=== PATIENT | male | born 1965 | race Caucasian/White ===

== ENCOUNTER 2016-09-09 10:18 | Outpatient (CLI) | payer MEDICAID | END 2016-09-09 10:19 | disposition home or self-care (01) | DX: M25.561 Pain in right knee (principal) ==

== ENCOUNTER 2016-12-12 07:37 | Emergency (ER) | payer MEDICAID ==
--- NOTE | 2016-12-12 07:44 | ED Physician Documentation ---
PD HPI CHEST PAIN - Stated complaint Stated Complaint: CHEST PX - Chief complaint Chief Complaint: Cardiac - History obtained from History obtained from: Patient - History of Present Illness Timing - onset: How many days ago (3-4) Timing - onset during: Light activity Timing - duration: Minutes Timing - details: Waxing and waning Quality: Pressure, Tightness. No: Sharp, Tearing Location: Substernal Radiation: Back Improved by: Rest Worsened by: Exertion (minimal exertion of just walking around house or to mailbox causing chest pain, improved after few minutes of rest.). No: Inspiration, Eating, Movement, Palpation Associated symptoms: Shortness of air, General Weakness. No: Diaphoresis, Nausea, Feeling faint / dizzy, Palpitations, Cough (had had URI with cough about 2-3 weeks ago and though he had ongoing dyspnea from that. Then with chest pain on mild exertion the past 3-4 days.) Similar symptoms before: Has not had sx before Recently seen: Not recently seen (had been to [facility] about 2-3 months ago and Dx with HTN, started on Lisinopril. Patient says he was on it only 2-3 weeks, then had apparent viral GE with vomiting and diarrhea, and stopped meds. Did not resume. Had URI/cough about 2 weeks ago for few days and improved with just mild occasional cough now.) Review of Systems Constitutional: reports: Fatigue. denies: Fever, Chills, Myalgias Nose: denies: Rhinorrhea / runny nose, Congestion Throat: denies: Sore throat Respiratory: reports: Dyspnea, Cough (mild). denies: Wheezing GI: denies: Abdominal Pain, Nausea, Vomiting, Diarrhea, Bloody / black stool : denies: Dysuria, Frequency Skin: denies: Rash, Lesions Neurologic: denies: Focal weakness, Numbness, Near syncope Endocrine: denies: Weight loss Immunocompromised: denies: Immunocompromised PD PAST MEDICAL HISTORY - Past Medical History Cardiovascular: Hypertension Respiratory: None Neuro: None Endocrine/Autoimmune: None - Past Surgical History Past Surgical History: No - Present Medications Home Medications: Ambulatory Orders Medication Instructions Recorded Confirmed Aspirin 0 mg PO DAILY 12/12/16 12/12/16 Finasteride 1 mg PO DAILY 12/12/16 12/12/16 - Allergies Allergies/Adverse Reactions: Allergies Allergy/AdvReac Type Severity Reaction Status Date / Time No Known Drug Allergies Allergy Verified 12/12/16 07:42 - Living Situation Living Situation: reports: With spouse/s.o. Living Arrangement: reports: At home - Social History Smoking Status: Former smoker Does the pt drink ETOH?: No Does the pt have substance abuse?: Yes Substance Use and Type: Marijuana - Family History Family history: reports: Non contributory - Immunizations Immunizations are current?: Yes - POLST POLST Status: Full Code PD ED PE NORMAL - Vitals Vital signs reviewed: Yes - General General: Alert and oriented X 3, No acute distress, Well developed/nourished - HEENT HEENT: Pharynx benign - Neck Neck: Supple, no meningeal sign, No adenopathy - Cardiac Cardiac: RRR, No murmur, No rub - Respiratory Respiratory: Clear bilaterally - Abdomen Abdomen: Soft, Non tender - Male Male : Deferred - Rectal Rectal: Deferred - Back Back: No CVA TTP - Derm Derm: Normal color, Warm and dry - Extremities Extremities: No tenderness to palpate, Normal ROM s pain, No edema, No calf tenderness / cord - Neuro Neuro: Alert and oriented X 3, No motor deficit, Normal speech - Psych Psych: Normal mood, Normal affect Results - Vitals Vitals: Vital Signs - 24 hr 12/12/16 12/12/16 12/12/16 07:39 07:44 09:44 Temperature 35.8 C L Heart Rate 83 81 Respiratory 16 12 Rate Blood Pressure 184/129 H 175/110 H O2 Saturation 97 99 12/12/16 12/12/16 12/12/16 09:50 10:08 10:14 Temperature Heart Rate 76 68 63 Respiratory 16 16 16 Rate Blood Pressure 173/120 H 187/120 H 173/123 H O2 Saturation 99 98 95 12/12/16 12/12/16 12/12/16 10:18 10:57 11:38 Temperature Heart Rate 71 69 76 Respiratory 16 16 16 Rate Blood Pressure 164/115 H 164/110 H 157/100 H O2 Saturation 97 97 98 12/12/16 12/12/16 12/12/16 11:53 11:56 12:04 Temperature Heart Rate 68 69 Respiratory 16 16 Rate Blood Pressure 163/106 H 180/111 H 178/118 H O2 Saturation 99 99 12/12/16 12/12/16 14:13 15:25 Temperature Heart Rate 80 Respiratory 16 Rate Blood Pressure 162/106 H 151/109 H O2 Saturation 98 Oxygen O2 Source Room air - EKG (time done) 07:44 Rate: Rate (enter#) (84) Rhythm: NSR [place]: Normal Intervals: Normal ND QRS: Normal Ischemia: Normal ST segments. No: T wave inversion (but has flattening lateral leads) Compare to prior EKG: Old EKG unavailable - Labs Labs: Laboratory Tests 12/12/16 12/12/16 12/12/16 07:48 07:48 07:48 WBC 8.9 RBC 4.95 Hgb 16.6 Hct 47.1 MCV 95.3 H MCH 33.6 H MCHC 35.3 RDW 13.0 Plt Count 154 MPV 8.3 Neut # 6.5 Lymph # 1.7 Holt # 0.6 Eos # 0.1 Baso # 0.0 Absolute Nucleated RBC 0.00 Nucleated RBCs 0.0 ESR Sodium 137 Potassium 3.6 Chloride 106 Carbon Dioxide 20 L Anion Gap 11.0 BUN 10 Creatinine 0.9 Estimated GFR (MDRD) 89 Glucose 136 H Calcium 9.9 Total Bilirubin 1.1 H AST 30 ALT 36 Alkaline Phosphatase 84 Troponin I 0.05 B-Natriuretic Peptide Total Protein 7.1 Albumin 4.2 Globulin 2.9 Albumin/Globulin Ratio 1.4 Lipase 30 12/12/16 12/12/16 07:48 07:48 WBC RBC Hgb Hct MCV MCH MCHC RDW Plt Count MPV Neut # Lymph # Holt # Eos # Baso # Absolute Nucleated RBC Nucleated RBCs ESR 2 Sodium Potassium Chloride Carbon Dioxide Anion Gap BUN Creatinine Estimated GFR (MDRD) Glucose Calcium Total Bilirubin AST ALT Alkaline Phosphatase Troponin I B-Natriuretic Peptide 135 H Total Protein Albumin Globulin Albumin/Globulin Ratio Lipase - Rads (name of study) chest Radiology: Prelim report reviewed, EMP read contemporaneously (no acute process) ECHO Radiology: Prelim report reviewed (no valvular problems. EF 50-55%. However there was regional wall hypokinesis in inferolateral regional suggestive of ischemia. ) PD MEDICAL DECISION MAKING - ED course Complexity details: reviewed results (non-ischemic ECG and negative troponin, but symptoms concerning for crescendo/unstable angina, and there is regional wall abnormality on ECHO suggestive of ongoing ischemia. ), d/w franchise consultant ( DIscussed with Cardiology Giss[facility]am ? and then Hospitalist, who felt concerning enough to warrant transfer and will likely cath in AM. Tried [facility] at patient request, but no beds available. ) Departure - Departure Disposition: 02 Transfer Acute Care Hosp Clinical Impression: Chest pain Qualifiers: Chest pain type: chest pain due to myocardial ischemia Ischemic chest pain type : unstable angina pectoris Qualified Code(s): I20.0 - Unstable angina Condition: Stable Follow-Up: [facility] ARNP [Primary Care Provider] - Discharge Date/Time: 12/12/16 15:35
[2016-12-12 08:24] LABS: BASOPHILS % (AUTO) 0.3 %; EOSINOPHILS # (AUTO) 0.1 10^3/uL (0.0-0.7); HCT - HEMATOCRIT 47.1 % (42.0-52.0); HGB - HEMOGLOBIN 16.6 g/dL (14.0-18.0); LYMPHOCYTES # (AUTO) 1.7 10^3/uL (1.5-3.5); LYMPHOCYTES % (AUTO) 19.2 %; MEAN CORPUSCULAR HEMOGLOBIN 33.6 pg (27.0-31.0); MEAN CORPUSCULAR HGB CONC 35.3 g/dL (32.0-36.0); MEAN CORPUSCULAR VOLUME 95.3 fL (80.0-94.0); MEAN PLATELET VOLUME 8.3 fL (7.4-11.4); MONOCYTES # (AUTO) 0.6 10^3/uL (0.0-1.0); MONOCYTES % (AUTO) 6.5 %; NEUTROPHILS # (AUTO) 6.5 10^3/uL (1.5-6.6); RED BLOOD COUNT 4.95 10^6/uL (4.70-6.10); UNCORRECTED WHITE BLOOD COUNT 8.9 x10^3/uL; WHITE BLOOD COUNT 8.9 x10^3/uL (4.8-10.8)
[2016-12-12 08:32] LABS: ALBUMIN/GLOBULIN RATIO 1.4 (1.0-2.2); BILIRUBIN,TOTAL 1.1 mg/dL (0.2-1.0); CALCIUM 9.9 mg/dL (8.5-10.3); CREATININE 0.9 mg/dL (0.6-1.2); POTASSIUM 3.6 mmol/L (3.5-5.0); TOTAL PROTEIN 7.1 g/dL (6.7-8.2)
--- NOTE | 2016-12-12 09:26 | XRAY Preliminary Report ---
Exam: XR Chest 2 View PA/LAT IMPRESSION: 1. No acute disease in the chest. [facility] SITE ID: [id number]
--- NOTE | 2016-12-12 09:29 | XRAY Report ---
EXAM: CHEST RADIOGRAPHY EXAM DATE: 12/12/2016 08:58 AM. CLINICAL HISTORY: Chest discomfort. Chest pain. COMPARISON: None. TECHNIQUE: 2 views. FINDINGS: Lungs/Pleura: No focal opacities evident. No pleural effusion. No pneumothorax. Normal volumes. Mediastinum: Heart size is normal. Aorta is mildly tortuous. Other: Mild degenerative changes of the thoracic spine. IMPRESSION: 1. No acute disease in the chest. [facility] Referring Provider Line: [phone] SITE ID: [id number]
[2016-12-12] MEDS ORDERED: METOPROLOL 5 MG/5 ML VIAL IVP STA ×2 (09:52→11:43)
[2016-12-12] MEDS ORDERED: METOPROLOL 5 MG/5 ML VIAL IVP ONE ×2 (10:02→11:45)
[2016-12-12] MEDS ORDERED: ASPIRIN CHEW 81 MG TABLET PO STA (11:43)
[2016-12-12] MEDS ORDERED: NITROGLYCERIN 2% PASTE TOP STA (11:43)
[2016-12-12] MEDS ORDERED: ACETAMINOPHEN 325 MG TABLET PO STA (11:44)
[2016-12-12] MEDS ORDERED: NITROGLYCERIN 2% PASTE TOP ONE (11:45)
[2016-12-12] MEDS ORDERED: ACETAMINOPHEN 325 MG TABLET PO ONE (11:45)
[2016-12-12] MEDS ORDERED: ASPIRIN CHEW 81 MG TABLET ONE (11:45)
[2016-12-12 15:25] VITALS: BP 151/109
== END 2016-12-12 15:35 | disposition short-term general hospital (02) ==
LOC: ED 07:37
DX: I20.0 Unstable angina (principal); I10 Essential (primary) hypertension; Z79.82 Long term (current) use of aspirin; Z87.891 Personal history of nicotine dependence
CPT/HCPCS: 71020; 80053; 83690; 83880; 84484; 85025; 85651; 93005; 93010; 93306; 96374; 96376; 99284; 99285; A9270

== ENCOUNTER 2016-12-12 15:27 | Outpatient (CLI) | payer MEDICAID | END 2016-12-12 15:28 | disposition short-term general hospital (02) | LOC: EMS 15:27 | PROVIDERS: ATTEND Surgery | DX: I20.0 Unstable angina (principal) | CPT/HCPCS: A0425; A0426 ==

== ENCOUNTER 2017-01-26 07:23 | Outpatient (CLI) | payer MEDICAID ==
[2017-01-26 11:19] LABS: HEMOGLOBIN A1C 0.63 g/dL
[2017-01-26 11:22] LABS: BUN - BLOOD UREA NITROGEN 13 mg/dL (6-20); CALCIUM 10.3 mg/dL (8.5-10.3); CARBON DIOXIDE - CO2 27 mmol/L (21-32); CHLORIDE 107 mmol/L (101-111); CHOL/HDL RATIO 3.8 (<5.0); CHOLESTEROL 119 mg/dL; CREATININE 0.9 mg/dL (0.6-1.2); GFR - MDRD 89 (>89); GLUCOSE 93 mg/dL (70-100); HDL CHOLESTEROL 31 mg/dL; LDL/HDL RATIO 2.2 (<3.6); POTASSIUM 3.8 mmol/L (3.5-5.0); SODIUM 142 mmol/L (135-145); TRIGLYCERIDES 100 mg/dL; VLDL CHOLESTEROL 20 mg/dL
== END 2017-01-26 07:24 | disposition home or self-care (01) ==
LOC: LAB.F 07:23
PROVIDERS: ATTEND Internal Medicine Cardiovascular Disease
DX: R60.0 Localized edema (principal); Z95.1 Presence of aortocoronary bypass graft; I25.110 Atherosclerotic heart disease of native coronary artery with unstable angina pectoris
CPT/HCPCS: 36415; 80048; 80061; 83036; 83880

== ENCOUNTER 2018-07-26 07:22 | Outpatient (CLI) | payer MEDICAID ==
[2018-07-26 11:27] LABS: BASOPHILS % (AUTO) 0.3 %; EOSINOPHILS # (AUTO) 0.1 10^3/uL (0.0-0.7); EOSINOPHILS % (AUTO) 1.2 %; HGB - HEMOGLOBIN 17.8 g/dL (14.0-18.0); LYMPHOCYTES # (AUTO) 1.2 10^3/uL (1.5-3.5); LYMPHOCYTES % (AUTO) 13.3 %; MEAN CORPUSCULAR HEMOGLOBIN 34.4 pg (27.0-31.0); MEAN CORPUSCULAR HGB CONC 34.9 g/dL (32.0-36.0); MEAN CORPUSCULAR VOLUME 98.5 fL (80.0-94.0); MEAN PLATELET VOLUME 8.8 fL (7.4-11.4); MONOCYTES # (AUTO) 0.9 10^3/uL (0.0-1.0); NEUTROPHILS # (AUTO) 6.6 10^3/uL (1.5-6.6); NEUTROPHILS % (AUTO) 75.2 %; PLT - PLATELET COUNT 112 10^3/uL (130-450); RED BLOOD COUNT 5.17 10^6/uL (4.70-6.10); RED CELL DISTRIBUTION WIDTH 13.2 % (12.0-15.0); WHITE BLOOD COUNT 8.8 x10^3/uL (4.8-10.8)
[2018-07-26 12:11] LABS: ALBUMIN 4.3 g/dL (3.2-5.5); ALBUMIN/GLOBULIN RATIO 1.5 (1.0-2.2); ALKALINE PHOSPHATASE 74 IU/L (42-121); ALT ALANINE AMINOTRANSFERASE 32 IU/L (10-60); AST ASPARTATE AMINOTRANSFERASE 30 IU/L (10-42); BILIRUBIN,TOTAL 1.9 mg/dL (0.2-1.0); BUN - BLOOD UREA NITROGEN 19 mg/dL (6-20); CALCIUM 9.6 mg/dL (8.5-10.3); CARBON DIOXIDE - CO2 24 mmol/L (21-32); CHLORIDE 107 mmol/L (101-111); CHOL/HDL RATIO 3.4 (<5.0); CHOLESTEROL 124 mg/dL; CREATININE 0.9 mg/dL (0.6-1.2); GFR - MDRD 89 (>89); GLUCOSE 103 mg/dL (70-100); HDL CHOLESTEROL 36 mg/dL; LDL CHOLESTEROL,CALCULATED 77 mg/dL; LDL/HDL RATIO 2.1 (<3.6); SODIUM 140 mmol/L (135-145); TOTAL PROTEIN 7.1 g/dL (6.7-8.2); VLDL CHOLESTEROL 11 mg/dL
== END 2018-07-26 07:23 | disposition home or self-care (01) ==
LOC: LAB.F 07:22
PROVIDERS: ATTEND Nurse Practitioner Family
DX: I10 Essential (primary) hypertension (principal); Z13.6 Encounter for screening for cardiovascular disorders; F41.9 Anxiety disorder, unspecified
CPT/HCPCS: 36415; 80050; 80061; 83721

== ENCOUNTER 2018-08-13 08:00 | Outpatient (CLI) | payer MEDICAID ==
[2018-08-13 13:48] LABS: H. PYLORIS ANTIGEN STL NEGATIVE (Negative)
== END 2018-08-13 23:59 | disposition home or self-care (01) ==
LOC: LAB.R 08:00
PROVIDERS: ATTEND Nurse Practitioner Family
DX: R10.13 Epigastric pain (principal)
CPT/HCPCS: 87338